=== PATIENT | female | born 1995 | race Caucasian/White ===

== ENCOUNTER 2023-01-01 08:49 | Observation (INO) | payer SELFPAY ==
[~2023-01-01] VITALS: Ht 167.6 cm; Wt 72.3 kg
[2023-01-01 08:49] VITALS: BP 116/79; PULSE 102; RESP 16; TEMP 98; O2SAT 99
== END 2023-01-01 12:09 | disposition home or self-care (01) ==
LOC: ER 08:49 → LDRP 09:35 → UNDOADMOB 09:35 → LDRP 10:00 → UNDODISOB 12:09
PROVIDERS: ADMIT Obstetrics & Gynecology; ATTEND Obstetrics & Gynecology
DX: O26.893 Other specified pregnancy related conditions, third trimester (principal); R10.9 Unspecified abdominal pain; R51.9 Headache, unspecified; N89.8 Other specified noninflammatory disorders of vagina; O62.9 Abnormality of forces of labor, unspecified; Z3A.31 31 weeks gestation of pregnancy
CPT/HCPCS: 59025; 76805; 81002; 94760; 99284; G0378

== ENCOUNTER 2023-03-11 08:27 | Observation (INO) | payer MEDICAID ==
[2023-03-11] MEDS ORDERED: PREN-96 PO (08:35)
== END 2023-03-11 09:35 | disposition home or self-care (01) ==
LOC: UNDOADMOB 08:27 → LDRP 08:27 → UNDODISOB 09:35
PROVIDERS: ADMIT Obstetrics & Gynecology; ATTEND Obstetrics & Gynecology
DX: O48.0 Post-term pregnancy (principal); Z3A.40 40 weeks gestation of pregnancy
CPT/HCPCS: 59025; 76818; 81002; 94760; G0378

== ENCOUNTER 2023-03-13 08:52 | Inpatient (IN) | payer MEDICAID ==
[~2023-03-13] VITALS: Ht 170.2 cm; Wt 73.5 kg
[~2023-03-13 08:52] MED LIST: PREN-96 PO
[2023-03-13] MEDS ORDERED: PHISODERM TOP SOLN 240ML BTL TOP PRN (09:15)
[2023-03-13] MEDS ORDERED: WITCH HAZEL-GLYCERIN PAD TOP PRN (09:15)
[2023-03-13] MEDS ORDERED: LACTATED RINGER'S 1,000 ML IV SCH (09:15)
[2023-03-13] MEDS ORDERED: LIDOCAINE 2%HCL (LOCAL ANESTH.) INJ 20ML MDV IJ PRN (09:15)
[2023-03-13] MEDS ORDERED: DERMOPLAST 60ML BOTTLE TOP PRN (09:15)
[2023-03-13] MEDS ORDERED: BUTORPHANOL TARTRATE 2 MG/1 ML VIAL IV PRN ×2 (09:15)
[2023-03-13] MEDS ORDERED: PROMETHAZINE HCL 25 MG/ML 1ML IV PRN (09:15)
[2023-03-13] MEDS ORDERED: miSOPROStol 50 MCG per PRE-CUT 1/2 TAB PO PRN (09:15)
[2023-03-13 09:54] LABS: Basophils # (auto) 0 10 ^3/uL (0-0.2); Basophils % (auto) 0.3 % (0.0-2.0); Eosinophils # (auto) 0.1 10 ^3/uL (0-0.8); Eosinophils % (auto) 1.1 % (0.0-7.0); Hemoglobin 12.4 g/dL (12.2-16.2); Lymphocytes # (auto) 1.6 10 ^3/uL (0.4-5.4); Lymphocytes % (auto) 20.7 % (10.0-50.0); Mean Corpuscular Hemoglobin 27.6 pg (28.0-32.0); Mean Corpuscular Hgb Conc. 32.6 g/dL (32.0-36.0); Mean Corpuscular Volume 84.6 fL (80.0-100.0); Monocytes # (auto) 0.6 10 ^3/uL (0-1.3); Monocytes % (auto) 7.5 % (0.0-12.0); Neutrophils # (auto) 5.3 10 ^3/uL (1.6-8.6); Neutrophils % (auto) 70.4 % (37.0-80.0); Nucleated Red Blood Cells % 0.1 %; Red Blood Cells 4.49 10^6/uL (4.0-5.20); Red Cell Distribution Width 16.6 % (11.8-14.3); White Blood Cell 7.5 10^3/uL (4.4-10.8)
[2023-03-13 09:58] LABS: Urine Bacteria FEW /hpf (None Seen); Urine Blood Negative /uL (Negative); Urine Clarity HAZY (Clear); Urine Color Yellow (Yellow); Urine Mucus FEW (None Seen); Urine Protein, UAD 1+ (Negative); Urine Specific Gravity 1.028 (1.001-1.035); Urine Urobilinogen Normal (Negative); Urine WBC 36 /hpf (0 - 5)
[2023-03-13 10:10] LABS: Amphetamine Screen, Urine Neg (NEGATIVE); Barbiturate Scree,Urine Neg (NEGATIVE); Benzodiazephine Screen, Urine Neg (NEGATIVE); Cannabinoid Screen, Urine Neg (NEGATIVE); Cocaine Screen, Urine Neg (NEGATIVE); Opiate Scree,Urine Neg (NEGATIVE); Phencyclidine Screen, Urine Neg (NEGATIVE)
[2023-03-13 10:13] LABS: Alanine Aminotransferase 15 U/L (7-40); Alkaline Phosphatase 154 U/L (46-116); Anion Gap 7 (5-15); Aspartate Aminotransferase 21 U/L (13-40); BUN/Creatinine Ratio 9.5 (10.0-20.0); Bilirubin, Total 0.4 mg/dL (0.2-1.0); Blood Urea Nitrogen 6 mg/dL (9-23); Calcium 8.9 mg/dL (8.7-10.4); Carbon Dioxide 23 mmol/L (20-30); Chloride 105 mmol/L (98-107); Glucose 92 mg/dL (74-106); Potassium 3.9 mmol/L (3.5-5.1); Sodium 135 mmol/L (136-145)
[2023-03-13 10:14] LABS: Total Protein 7.2 g/dL (5.7-8.2)
[2023-03-13 10:35] LABS: INR 0.93 (0.9-1.15); Partial Thromboplastin Time 24.8 SEC (24.5-34.5); Prothrombin Time 9.8 sec (9.3-11.8)
[2023-03-15 19:06] LABS: Treponema pallidum Ab (FTA-Ab) Non Reactive (Non Reactive)
[2023-03-16 12:06] LABS: RPR Non Reactive (Non Reactive)
== END 2023-03-13 12:54 | disposition home or self-care (01) | DRG 566 ==
LOC: LDRP 08:52
PROVIDERS: ADMIT Obstetrics & Gynecology; ATTEND Obstetrics & Gynecology
DX: O48.0 Post-term pregnancy (principal); Z3A.40 40 weeks gestation of pregnancy
CPT/HCPCS: 36415; 59025; 76805; 76818; 80053; 80307; 81001; 81002; 85025; 85610; 85730; 86592; 86850; 86900; 86901; 94760; G0378

== ENCOUNTER 2023-03-15 12:30 | Observation (INO) | payer MEDICAID | END 2023-03-15 14:44 | disposition home or self-care (01) | LOC: UNDOADMOB 12:30 → LDRP 12:30 | PROVIDERS: ADMIT Obstetrics & Gynecology; ATTEND Obstetrics & Gynecology | DX: O48.0 Post-term pregnancy (principal); Z3A.40 40 weeks gestation of pregnancy | CPT/HCPCS: 59025; 76818; 81002; G0378 ==

== ENCOUNTER 2023-03-17 08:50 | Observation (INO) | payer MEDICAID | END 2023-03-17 10:42 | disposition home or self-care (01) | LOC: LDRP 08:50 | PROVIDERS: ADMIT Obstetrics & Gynecology; ATTEND Obstetrics & Gynecology | DX: O48.0 Post-term pregnancy (principal); Z3A.40 40 weeks gestation of pregnancy | CPT/HCPCS: 59025; 76818; 81002; G0378 ==

== ENCOUNTER 2023-03-18 18:46 | Inpatient (IN) | payer MEDICAID ==
[~2023-03-18] VITALS: Ht 170.2 cm; Wt 78.5 kg
[2023-03-18] MEDS ORDERED: PHISODERM TOP SOLN 240ML BTL TOP PRN (19:30)
[2023-03-18] MEDS ORDERED: PROMETHAZINE HCL 25 MG/ML 1ML IV PRN (19:30)
[2023-03-18] MEDS ORDERED: LIDOCAINE 2%HCL (LOCAL ANESTH.) INJ 20ML MDV IJ PRN (19:30)
[2023-03-18] MEDS ORDERED: DERMOPLAST 60ML BOTTLE TOP PRN (19:30)
[2023-03-18] MEDS ORDERED: WITCH HAZEL-GLYCERIN PAD TOP PRN (19:30)
[2023-03-18 20:22] LABS: Basophils # (auto) 0 10 ^3/uL (0-0.2); Basophils % (auto) 0.4 % (0.0-2.0); Eosinophils # (auto) 0.1 10 ^3/uL (0-0.8); Eosinophils % (auto) 0.9 % (0.0-7.0); Hematocrit 35.1 % (36.0-46.0); Hemoglobin 11.5 g/dL (12.2-16.2); Lymphocytes # (auto) 1.6 10 ^3/uL (0.4-5.4); Lymphocytes % (auto) 19.7 % (10.0-50.0); Mean Corpuscular Hemoglobin 27.4 pg (28.0-32.0); Mean Corpuscular Hgb Conc. 32.9 g/dL (32.0-36.0); Mean Corpuscular Volume 83.3 fL (80.0-100.0); Monocytes # (auto) 0.7 10 ^3/uL (0-1.3); Monocytes % (auto) 8.2 % (0.0-12.0); Neutrophils # (auto) 5.8 10 ^3/uL (1.6-8.6); Neutrophils % (auto) 70.8 % (37.0-80.0); Nucleated Red Blood Cells % 0.1 %; Red Blood Cells 4.22 10^6/uL (4.0-5.20); Red Cell Distribution Width 16.1 % (11.8-14.3); White Blood Cell 8.2 10^3/uL (4.4-10.8)
[2023-03-18 20:32] LABS: Urine Bacteria FEW /hpf (None Seen); Urine Blood Negative /uL (Negative); Urine Clarity Clear (Clear); Urine Color Yellow (Yellow); Urine Mucus FEW (None Seen); Urine Protein, UAD Negative (Negative); Urine Specific Gravity 1.015 (1.001-1.035); Urine Urobilinogen Normal (Negative); Urine WBC 1 /hpf (0 - 5); Urine pH 6.5 (5.0-8.0)
[2023-03-18 20:40] LABS: Amphetamine Screen, Urine Neg (NEGATIVE); Barbiturate Scree,Urine Neg (NEGATIVE); Benzodiazephine Screen, Urine Neg (NEGATIVE); Cannabinoid Screen, Urine Neg (NEGATIVE); Cocaine Screen, Urine Neg (NEGATIVE); Opiate Scree,Urine Neg (NEGATIVE); Phencyclidine Screen, Urine Neg (NEGATIVE)
[2023-03-18 20:43] LABS: INR 0.96 (0.9-1.15); Partial Thromboplastin Time 24.8 SEC (24.5-34.5); Prothrombin Time 10.1 sec (9.3-11.8)
[2023-03-18 20:46] LABS: Alanine Aminotransferase 13 U/L (7-40); Albumin 3.8 g/dL (3.2-4.8); Alkaline Phosphatase 158 U/L (46-116); Anion Gap 9 (5-15); Aspartate Aminotransferase 19 U/L (13-40); Calcium 9.4 mg/dL (8.7-10.4); Carbon Dioxide 22 mmol/L (20-30); Chloride 104 mmol/L (98-107); Glucose 102 mg/dL (74-106); Potassium 4.4 mmol/L (3.5-5.1); Sodium 135 mmol/L (136-145)
[2023-03-18 20:47] LABS: Bilirubin, Total 0.3 mg/dL (0.2-1.0); Total Protein 6.8 g/dL (5.7-8.2)
[2023-03-18 20:49] LABS: BUN/Creatinine Ratio 8.3 (10.0-20.0); Blood Urea Nitrogen < 5 mg/dL (9-23)
[2023-03-18] MEDS: LACTATED RINGER'S 1,000 ML IV SCH (21:52)
[2023-03-18] MEDS: miSOPROStol 50 MCG per PRE-CUT 1/2 TAB PO PRN (21:53)
[2023-03-19] MEDS ORDERED: LIDOCAINE 2%HCL (LOCAL ANESTH.) INJ 20ML MDV IJ PRN (01:00)
[2023-03-19] MEDS: miSOPROStol 50 MCG per PRE-CUT 1/2 TAB PO PRN ×2 (01:59→06:20)
[2023-03-19] MEDS: LACTATED RINGER'S 1,000 ML IV SCH (03:32)
[2023-03-19] MEDS ORDERED: miSOPROStol 100 mcg TAB PR PRN (08:45)
[2023-03-19] MEDS ORDERED: ACETAMINOPHEN 325 MG TAB PO PRN ×2 (08:45→20:15)
[2023-03-19] MEDS ORDERED: MINERAL OIL TOPICAL 10ml TOP PRN (08:45)
[2023-03-19] MEDS ORDERED: ONDANSETRON HCL 4 MG/2 ML VIAL IV PRN (08:45)
[2023-03-19] MEDS ORDERED: PROMETHAZINE HCL 25 MG/ML 1ML IM PRN (08:45)
[2023-03-19] MEDS ORDERED: CARBOPROST TROMETHAMINE 250 MCG/1ML VIAL IM PRN (08:45)
[2023-03-19] MEDS ORDERED: METHYLERGONOVINE MALEATE 0.2 MG/ML AMP IM PRN (08:45)
[2023-03-19] MEDS ORDERED: diphenhdrAMINE HCL 50 MG/1 ML VL IV PRN (08:45)
[2023-03-19] MEDS ORDERED: DIPHENOXYLATE W/ATROPINE 2.5 MG TAB PO SCH (12:00)
[2023-03-19] MEDS: fentaNYL CITRATE 100 MCG/2 ML VL IV PRN ×2 (12:13→16:13)
[2023-03-19] MEDS ORDERED: LACT. RINGERS/OXYTOCIN 20UNITS 1,000 ML IV SCH (13:15)
[2023-03-19] MEDS ORDERED: TERBUTALINE SULFATE 1 MG/ML 1ML VIAL SC PRN (13:15)
[2023-03-19] MEDS ORDERED: fentaNYL CITRATE 100 MCG/2 ML VL IV ONE (15:45)
[2023-03-19] MEDS ORDERED: LACTATED RINGER'S 1,000 ML IV ONE (15:45)
[2023-03-19] MEDS ORDERED: ROPIVACAINE HCL 200 ML EPI SCH (15:45)
[2023-03-19] MEDS ORDERED: NALOXONE HCL 0.4 MG/ML VIAL IV ONE (15:45)
[2023-03-19] MEDS ORDERED: ePHEDrine SULFATE 50 MG/ML AMP IV ONE (15:45)
[2023-03-19] MEDS ORDERED: ROPIVACAINE HCL 0 ML ONE (15:59)
[2023-03-19] MEDS ORDERED: PROMETHAZINE HCL 25 MG/ML 1ML IV PRN (16:00)
[2023-03-19] MEDS: MINERAL OIL TOPICAL 10ml TOP ONE ×4 (18:00→19:46)
[2023-03-19] MEDS ORDERED: LACT. RINGERS/OXYTOCIN 20UNITS 500 ML IV ONE ×4 (18:23→21:45)
[2023-03-19] MEDS: TRANEXAMIC ACID 1,000 MG in SODIUM CHL 0.9% 100 ML IV PRN (20:14)
[2023-03-19] MEDS: IBUPROFEN 600 MG TAB PO PRN (21:47)
[2023-03-19] MEDS: DOCUSATE SOD 100 MG CAP PO SCH (22:00)
[2023-03-19 23:00] VITALS: BP 120/72; PULSE 82; RESP 18; TEMP 98.2; O2SAT 98
[2023-03-20 03:00] VITALS: BP 122/70; PULSE 74; RESP 18; TEMP 98; O2SAT 98
[2023-03-20 03:06] LABS: RPR Non Reactive (Non Reactive); Rubella Antibodies, IgG 5.25 index (Immune >0.99)
[2023-03-20 04:58] LABS: Basophils # (auto) 0 10 ^3/uL (0-0.2); Basophils % (auto) 0.3 % (0.0-2.0); Eosinophils # (auto) 0 10 ^3/uL (0-0.8); Eosinophils % (auto) 0.2 % (0.0-7.0); Hematocrit 31.7 % (36.0-46.0); Hemoglobin 10.4 g/dL (12.2-16.2); Lymphocytes # (auto) 1.5 10 ^3/uL (0.4-5.4); Lymphocytes % (auto) 12.7 % (10.0-50.0); Mean Corpuscular Hemoglobin 27.5 pg (28.0-32.0); Mean Corpuscular Hgb Conc. 32.8 g/dL (32.0-36.0); Mean Corpuscular Volume 83.9 fL (80.0-100.0); Monocytes # (auto) 0.7 10 ^3/uL (0-1.3); Monocytes % (auto) 6.3 % (0.0-12.0); Neutrophils # (auto) 9.6 10 ^3/uL (1.6-8.6); Neutrophils % (auto) 80.5 % (37.0-80.0); Red Blood Cells 3.78 10^6/uL (4.0-5.20); Red Cell Distribution Width 16.2 % (11.8-14.3); White Blood Cell 11.9 10^3/uL (4.4-10.8)
[2023-03-20 07:00] VITALS: BP 120/75; PULSE 74; RESP 16; TEMP 98.5; O2SAT 97
[2023-03-20 11:10] VITALS: BP 119/81; PULSE 90; RESP 16; TEMP 99.6; O2SAT 97
[2023-03-20 15:15] VITALS: BP 124/76; PULSE 85; RESP 16; TEMP 99; O2SAT 97
[2023-03-20] MEDS: IBUPROFEN 600 MG TAB PO PRN ×2 (16:29→22:36)
[2023-03-20] MEDS ORDERED: LACT. RINGER'S W OXYTOCIN 20UNITS/1000 ML IV SCH (18:00)
[2023-03-20 18:50] VITALS: BP 121/72; PULSE 96; RESP 17; TEMP 97.9; O2SAT 96
[2023-03-20] MEDS ORDERED: DOCU-265 PO (21:24)
[2023-03-20] MEDS ORDERED: ACET-1882 PO (21:24)
[2023-03-20] MEDS ORDERED: FERR30CA PO (21:24)
[2023-03-20] MEDS ORDERED: IBU600T PO (21:24)
[2023-03-20 22:45] VITALS: BP 124/78; PULSE 89; RESP 17; TEMP 98.1; O2SAT 97
[2023-03-20] MEDS: DOCUSATE SOD 100 MG CAP PO SCH (23:12)
[2023-03-21 02:50] VITALS: BP 113/71; PULSE 77; RESP 18; TEMP 98.7; O2SAT 97
[2023-03-21 03:36] LABS: Chlamydia Trachomatis, NAA Negative (Negative); Neisseria gonorrhoeae, NAA Negative (Negative)
[2023-03-21] MEDS: IBUPROFEN 600 MG TAB PO PRN (05:28)
[2023-03-21 06:48] VITALS: BP 130/81; PULSE 75; RESP 17; TEMP 98.1; O2SAT 99
[2023-03-21] MEDS: TRANEXAMIC ACID 1,000 MG in SODIUM CHL 0.9% 100 ML IV PRN (09:46)
[2023-03-21 11:00] VITALS: BP 122/81; PULSE 91; RESP 17; TEMP 97.7
[2023-03-22 19:06] LABS: Treponema pallidum Ab (FTA-Ab) Non Reactive (Non Reactive)
== END 2023-03-21 12:20 | disposition home or self-care (01) | DRG 560 ==
LOC: LDRP 18:46 → UNDOADMIN 18:46 → LDRP 19:32
PROVIDERS: ADMIT Obstetrics & Gynecology; ATTEND Obstetrics & Gynecology
PROC: 10E0XZZ Delivery of Products of Conception, External Approach (ICD-10-PCS; principal; 2023-03-19)
PROC: 3E0DXGC Introduction of Other Therapeutic Substance into Mouth and Pharynx, External Approach (ICD-10-PCS; 2023-03-19)
PROC: 0HQ9XZZ Repair Perineum Skin, External Approach (ICD-10-PCS; 2023-03-19)
DX: O48.0 Post-term pregnancy (principal); Z37.0 Single live birth; R71.0 Precipitous drop in hematocrit; O70.0 First degree perineal laceration during delivery; Z3A.41 41 weeks gestation of pregnancy; O99.02 Anemia complicating childbirth
CPT/HCPCS: 36415; 59025; 59200; 59409; 76818; 80053; 80307; 81001; 81002; 85025; 85610; 85730; 86592; 86703; 86762; 86850; 86900; 86901; 87340; 94760; 96360; 96361; 96365; 96366; 96374; 96375; G0378; J2590

== ENCOUNTER 2025-03-01 10:51 | Emergency (ER) | payer MEDICAID, SELFPAY ==
[~2025-03-01] VITALS: Ht 170.2 cm; Wt 68.0 kg
[~2025-03-01 10:51] MED LIST changes: +ACET-1882 PO; +DOCU-265 PO; +FERR30CA PO; +IBU600T PO
[2025-03-01 11:29] VITALS: BP 126/70; PULSE 80; RESP 17; TEMP 98.5; O2SAT 98
--- NOTE | 2025-03-01 11:30 | ED.PDOC ---
Musculoskeletal HPI Comments A 29 YEAR OLD FEMALE PRESENTS TO THE ED WITH COMPLAINT OF RIGHT FOOT PAIN STATUS POST FALL. PATIENT STATES SHE ACCIDENTALLY SLIPPED AND FELL EARLIER TODAY AND INJURED HER RIGHT FOOT. PATIENT REPORTS SHE IS NOW EXPERIENCING RIGHT FOOT PAIN AND SWELLING IN HIS WORSE WITH MOVEMENT. PATIENT DENIES HEAD INJURY, NECK INJURY, LOC, FEVER, CHILLS, SHORTNESS OF BREATH, CHEST PAIN, ABDOMINAL PAIN, NAUSEA, VOMITING, HEADACHE, OR OTHER COMPLAINTS. NO OTHER SYMPTOMS OR MODIFYING FACTORS AT THIS TIME. PATIENT IS ALERT, ORIENTED X 4, AND HAS STEADY GAIT. Chief Complaint: Lower Extremity Time Seen by MD: 10:57 Reviewed Notes: Nurses Notes, Medications, Allergies Allergies: Coded Allergies: NO KNOWN ALLERGIES (Unverified , 01/01/23) Home Meds Active Scripts Ibuprofen (Ibuprofen) 600 Mg Tab, 1 TAB PO TID, #30 TAB Prov:NICOLE WAITE 03/01/25 Docusate Sodium (Docusate Sodium) 100 Mg Cap, 100 MG PO HS PRN for 30 Days, #30 CAP 1 Refill Prov:ANA M BELL [facility] 03/20/23 Acetaminophen (Acetaminophen) 325 Mg Tab, 650 MG PO Q6HPRN PRN for 10 Days, #80 TAB Prov:ANA M BELL [facility] 03/20/23 Ibuprofen Micronized (MOTRIN TABLET) 600 Mg Tb, 600 MG PO Q6HP PRN for 30 Days, #120 TAB Prov:ANA M BELL [facility] 03/20/23 Ferric Maltol (Accrufer) 30 Mg Cap, 30 MG PO BID for 30 Days, #60 CAP 1 Refill take twice a day on an empty stomach, either 1 hour before or 2 hours after a meal Prov:ANA M BELL 03/20/23 Reported Medications Vit W/ Ferrous Fumara ( One Daily) Daily Tab, 1 TAB PO DAILY, #90 TAB 3 Refills 03/11/23 Information Source: Patient Mode of Arrival: Wheelchair Location: Right Extremity Location: Foot Timing: Hours Prehospital treatment: None Severity: Moderate Able to Move Extremity: Yes Bear Weight: Limited Pain: Moderate Mechanism: Twisting Circumstances: Fall Onset of Symptoms: After Trauma Symptoms: Swelling, Pain DVT Risk Factors: NONE Last Tetanus: Unknown Associated signs and symptoms: Foot pain Past Medical History PAST MEDICAL HISTORY: Denies Surgical History: Denies all surgeries DREDGE MASTER History: Denies all DREDGE MASTER Hx Family History Family History: Reviewed,noncontributory to illness Social History Smoker: Non-Smoker Alcohol: Denies ETOH Use Drugs: Denies Drug Use Lives In: Home Constitutional: denies: chills, diaphoresis, fatigue, fever, malaise, sweats, weakness, others EENTM: denies: blurred vision, double vision, ear bleeding, ear discharge, ear drainage, ear pain, ear ringing, eye pain, eye redness, hearing loss, mouth pain, mouth swelling, nasal discharge, nose bleeding, nose congestion, nose pain, photophobia, tearing, throat pain, throat swelling, voice changes, others Respiratory: denies: cough, hemoptysis, orthopnea, SOB at rest, shortness of breath, SOB with excertion, stridor, wheezing, others Cardiovascular: denies: chest pain, dizzy spells, diaphoresis, Dyspnea on exertion, edema, irregular heart beat, left arm pain, lightheadedness, palpitations, PND, syncope, others Gastrointestinal: denies: abdomen distended, abdominal pain, blood streaked bowels, constipated, diarrhea, dysphagia, difficulty swallowing, hematemesis, melena, nausea, poor appetite, poor fluid intake, rectal bleeding, rectal pain, vomiting, others Genitourinary: denies: abnormal vagina bleeding, burning, dyspareunia, dysuria, flank pain, frequency, hematuria, incontinence, pain, , vagina discha rge, urgency, others Neurological: denies: dizziness, fainting, headache, left sided numbness, left sided weakness, numbness, paresthesia, pre-existing deficit, right sided numbness, right sided weakness, seizure, speech problems, tingling, tremors, weakness, others Musculoskeletal: reports: joint pain, joint swelling, others (RIGHT FOOT PAIN AND SWELLING); denies: back pain, gout, muscle pain, muscle stiffness, neck pain Integumetry: denies: bruises, change in color, change in hair/nails, dryness, laceration, lesions, lumps, rash, wounds, others Allergic/Immunocompromised: denies: Difficulty Healing, Frequent Infections, Hives, Itching, others Hematologic/Lymphatic: denies: anemia, blood clots, easy bleeding, easy bruising, swollen glands, others Endocrine: denies: excessive hunger, excessive sweating, excessive thirst, excessive urination, flushing, intolerance to cold, intolerance to heat, unexplained weight gain, unexplained weight loss, others Psychiatric: denies: anxiety, bipolar disorder, depression, hopeless, panic disorder, schizophrenia, sleepless, suicidal, others All Other Systems: Reviewed and Negative Physical Exam General Appearance: No Apparent Distress, Normal HEENT: Normal ENT Inspection, PERRL/EOMI, Pharynx Normal, TMs Normal Neck: Full Range of Motion, Non-Tender, Normal, Normal Inspection Respiratory: Chest Non-Tender, Lungs Clear, No Accessory Muscle Use, No Respiratory Distress, Normal Breath Sounds Cardiovascular: No Edema, No JVD, No Murmur, No Gallop, Normal Peripheral Pulses, Regular Rate/Rhythm Breast Exam: Deferred Gastrointestinal: No Organomegaly, Non Tender, No Pulsatile Mass, Normal Bowel Sounds, Soft Genitalia: Deferred Pelvic: Deferred Rectal: Deferred Extremities: Decreased range of motion, No calf tenderness, Normal capillary refill, No pedal edema, Swelling (BONY TENDERNESS AND SWELLING ON RIGHT LATERAL FOOT, NO DEFORMITY. ), Tender (BONY TENDERNESS AND SWELLING ON RIGHT LATERAL FOOT. ) Musculoskeletal : Apperance: Normal Neurologic: Alert, salicylic acid blender II-XII nml as Tested, No Motor Deficits, Normal Affect, Normal Mood, No Sensory Deficits Cerebellar Function: Normal Reflexes: Normal Skin: Dry, Normal Color, Warm Peripheral Pulses: 2+ carotid (R), 2+ carotid (L), 2+ dorsalis pedis (R), 2+ dorsalis pedis (L) Lymphatic: No Adenopathy Was a procedure done? Was a procedure done?: No Differential Diagnosis EXT Differential Diagnosis: Fracture, Sprain, Dislocation, Contusion, Strain, Bursitis X-Ray, Labs, Meds, VS Vital Signs Date Time Temp Pulse Resp B/P (MAP) Pulse Ox O2 Delivery O2 Flow Rate FiO2 03/01/25 11:29 80 17 98 Room Air 03/01/25 11:29 98.5 80 17 126/70 (88) 98 98.5 03/01/25 10:53 98.2 75 20 139/91 100 98.2 Current Medications Medications (Trade) Dose Ordered Sig/John Route Start Time Stop Time Status Last Admin Ibuprofen (Motrin Tablet) 600 mg ONCE ONCE PO 03/01/25 12:15 03/01/25 12:13 DC 03/01/25 12:06 CLINICAL INDICATION: Pain; FALL TECHNIQUE: 3 radiographic views of the right foot were obtained. Comparison: XR CERVICAL SPINE 2-3 VIEW on DOS: 01/03/25 FINDINGS/IMPRESSION: Nondisplaced fracture of the base of the 5th metatarsal bone. ATED BY: EDGARD WHITNEY MD DICTATED DATE/TIME: 03/01/251157 SIGNED BY: EDGARD WHITNEY MD SIGNED DATE/TIME: 03/01/251157 CC: X-Ray, Labs, Meds, VS Comment EXTERNAL MEDICAL RECORDS REVIEWED: [NONE] INDEPENDENT HISTORIANS: [NONE] SOCIAL DETERMINANTS OF HEALTH: [NONE] LABS ORDERED: NONE REVIEWED AND INTERPRETED RESULTS: NONE IMAGING ORDERED: XR FOOT RT TREATMENTS ORDERED: IBUPROFEN 600MG PO, CRUTCHES GIVEN, POSTERIOR SPLINT APPLIED TO PATIENT'S RIGHT FOOT. PROCEDURES PERFORMED: NONE CRITICAL CARE TIME: NONE I HAVE DISCUSSED THE PATIENT WITH THE ATTENDING PHYSICIAN DR. JONES AND HE AGREES WITH THE PATIENT'S PLAN OF CARE AND DISPOSITION. BASED ON HISTORY OF PRESENT ILLNESS, AND PHYSICAL EXAM, PATIENT WILL BE DISCHARGED HOME. DISCUSSED PLAN FOR DISCHARGE HOME WITH RX [IBUPROFEN 800MG]. MEDICATION WARNINGS GIVEN. SHARED DECISION MAKING: PATIENT INSTRUCTED TO FOLLOW UP WITH PRIMARY CARE PROVIDER IN 1-2 DAYS FOR RE-EVALUATION OF SYMPTOMS. PATIENT VERBALIZES UNDERSTANDING TO RETURN TO ED FOR NEW OR WORSENING SYMPTOMS OR IF FOLLOW UP WITH PCP CANNOT BE OBTAINED. PATIENT FEELS COMFORTABLE GOING HOME AT THIS TIME. ALL QUESTIONS ADDRESSED AT TIME OF DISCHARGE. Images Reviewed?: Images reviewed and evaluated by me Time of 1ST Reevaluation: 12:15 Reevaluation 1ST: Improved Patient Education/Counseling: Diagnosis, Treatment, Need For Follow Up Family Education/Counseling: Diagnosis, Treatment, Need For Follow Up Medical Screening: No EMC Exist At This Time Departure 1 Departure Time of Disposition: 12:16 Impression: Primary Impression: Fracture of base of fifth metatarsal bone of right foot Qualified Codes: S92.351A - Displaced fracture of fifth metatarsal bone, right foot, initial encounter for closed fracture Additional Impression: Status post fall Disposition: 01 HOME / SELF CARE / HOMELESS Condition: Stable Additional Instructions: FOLLOW-UP WITH PCP IN 1 TO 2 DAYS. TAKE MEDICATIONS PRESCRIBED. RETURN TO ED FOR ANY NEW OR WORSENING SYMPTOMS. e-Prescriptions Ibuprofen (Ibuprofen) 600 Mg Tab 1 TAB PO TID, #30 TAB Prov: NICOLE WAITE 03/01/25 Discharged With: Self, Relative (Mother) Critical Care Note Critical Care Time?: No Stability Stability form required: No I personally scribed for NICOLE WAITE ([email or web address]) on 03/01/25 at 11:30. Electronically submitted by Natalio Arana ([email or web address]). I personally scribed for NICOLE WAITE ([email or web address]) on 03/01/25 at 12:05. Electronically submitted by Natalio Arana ([email or web address]). NICOLE WAITE Mar 01, 2025 11:30
--- NOTE | 2025-03-01 12:00 | DVH ---
CLINICAL INDICATION: Pain; FALL TECHNIQUE: 3 radiographic views of the right foot were obtained. Comparison: XR CERVICAL SPINE 2-3 VIEW on DOS: 01/03/25 FINDINGS/IMPRESSION: Nondisplaced fracture of the base of the 5th metatarsal bone.
[2025-03-01] MEDS ORDERED: IBUP-1454 PO (12:05)
[2025-03-01] MEDS: IBUPROFEN 600 MG TAB PO ONE (12:06)
== END 2025-03-01 12:13 | disposition home or self-care (01) ==
LOC: ER 10:51
DX: S92.354A Nondisplaced fracture of fifth metatarsal bone, right foot, initial encounter for closed fracture (principal); Z79.899 Other long term (current) drug therapy; Z79.1 Long term (current) use of non-steroidal anti-inflammatories (NSAID); W01.0XXA Fall on same level from slipping, tripping and stumbling without subsequent striking against object, initial encounter; Y93.89 Activity, other specified; Y92.89 Other specified places as the place of occurrence of the external cause; Y99.8 Other external cause status
CPT/HCPCS: 29515; 73630